=== PATIENT | female | born 1995 | race Caucasian/White ===

== ENCOUNTER 2019-04-27 15:44 | Emergency (ER) | payer SELFPAY ==
[~2019-04-27] VITALS: Ht 165.1 cm; Wt 68.0 kg
[2019-04-27] MEDS ORDERED: SODIUM CHLORIDE 0.9% 1,000 ML IV ONE (16:40)
[2019-04-27] MEDS ORDERED: ACETAMINOPHEN 325MG TABLET PO PRN (16:45)
[2019-04-27 17:11] LABS: BASOPHILS % 0.4 % (0.0-2.0); EOSINOPHILS % 1.8 % (0.0-5.0); HEMATOCRIT. 39.5 % (36.0-48.0); HEMOGLOBIN. 13.5 g/dL (12.0-16.0); LYMPHOCYTES % 12.3 % (20.0-50.0); MEAN CORPUSCULAR HEMOGLOBIN 28.1 pg (28.0-32.0); MEAN CORPUSCULAR VOLUME 82.3 fL (81.0-99.0); MONOCYTES % 5.2 % (2.0-8.0); NEUTROPHILS % 80.3 % (40.0-76.0)
[2019-04-27 17:17] LABS: CHLORIDE 107 mEq/L (98-107)
[2019-04-27 17:30] LABS: CLARITY URINE TURBID (CLEAR); COLOR URINE RED (YELLOW); KETONES URINE NEGATIVE (NEGATIVE); LEUKOCYTE ESTERASE URINE 1+ (NEGATIVE); NITRITE URINE NEGATIVE (NEGATIVE); OCCULT BLOOD URINE 3+ (NEGATIVE); PROTEIN URINE 2+ (NEGATIVE); SPECIFIC GRAVITY URINE 1.019 (1.005-1.030); UROBILINOGEN URINE 0.2 E.U./dL (0.2-1.0)
[2019-04-27 17:41] LABS: B-HCG QUANTITATIVE 112904 mIU/mL (<3)
[2019-04-27 17:46] LABS: PLATELET 202 x1000/uL (130-400); PLATELET ESTIMATE NORMAL
[2019-04-27] MEDS ORDERED: RHO(D) IMMUNE GLOBULIN 300 MCG/SYR IM ONE (19:30)
[2019-04-27 22:06] VITALS: BP 124/72
== END 2019-04-27 22:08 | disposition home or self-care (01) ==
LOC: ER 15:44
DX: O20.0 Threatened abortion (principal); O23.42 Unspecified infection of urinary tract in pregnancy, second trimester; Z3A.15 15 weeks gestation of pregnancy
CPT/HCPCS: 36415; 76805; 76810; 76830; 80053; 81003; 81025; 84702; 85025; 86850; 86900; 86901; 90384; 96372; 99284; J7030